=== PATIENT | male | born 1970 | race Caucasian/White ===

== ENCOUNTER 2017-05-14 03:01 | Emergency (ER) | payer MEDICARE ==
[2013-10-15 07:41] VITALS: BMI 41.2
[~2017-05-14 03:01] MED LIST: COLACE100 MG PO; NORCO 5/325 TAB1 TA1 PO; PROAIR HFA8.5 GM INH; SINGULAIR10 MG PO; VALIUM5 MG PO
== END 2017-05-14 03:55 | disposition home or self-care (01) ==
LOC: D.ER 03:01
DX: J11.1 Influenza due to unidentified influenza virus with other respiratory manifestations (principal)

== ENCOUNTER 2017-09-27 21:31 | Emergency (ER) | payer MEDICARE ==
[2013-10-15 07:41] VITALS: BMI 41.2
== END 2017-09-27 23:41 | disposition home or self-care (01) ==
LOC: D.ER 21:31
DX: M25.562 Pain in left knee (principal)